=== PATIENT | female | born 1965 ===

== ENCOUNTER 2022-06-28 09:21 | Outpatient (CLI) | payer OTHER, SELFPAY ==
--- NOTE | 2022-07-14 17:45 | WPDHOMESLEEP ---
Sleep Study - Home Unattended Date of Study: 06/28/22 Ordering Provider: Pako Chi APRN Interpreting Provider: Yashira Santizo, DO Home Sleep Study Type: Watch PAT Height: 1.73 m Weight: 90.265 kg Body Mass Index: 30.2 Neck Circumference (inches): 14 [place]: 3 Reason for Sleep Study Daytime hypersomnia Sleep History The patient is a 57-year-old female with anxiety and depression that had a sleep study ordered by the pulmonary group for evaluation of sleep apnea. The patient rarely awakens from sleep short of breath. She occasionally awakens at night with heartburn, belching or cough. She constantly snores and is frequently loud enough that others complain. She occasionally has trouble sleeping when she has a cold. She rarely wakes up gasping for air throughout the night. She denies having breathing problems at night observed by herself or others. She rarely sweats excessively at night. She denies having heart palpitations or irregular heartbeats during the night. She denies falling asleep during the day and while driving. She denies sleep paralysis, cataplexy and hypnagogic / hypnopompic hallucinations. She denies having trouble at school or work due to sleepiness. She denies feeling afraid of going to sleep. She rarely has nightmares. She occasionally remembers her dreams. She frequently has thoughts racing through her mind. She occasionally feels sad or depressed. She frequently has anxiety. She rarely has muscular tension. She occasionally notices parts of her body jerk. She rarely kicks during the night. She denies having crawling and aching feelings in her legs and denies having leg pain during the night. She denies grinding her teeth during sleep but rarely awakens with morning jaw pain. She denies being bothered by pain during the day and denies being awakened by pain during the night. She occasionally wakes up feeling stiff in the morning. She rarely wakes up with sore or achy muscles. She frequently wakes up with pain in the neck, spine or other joints. She goes to bed at 10:30 p.m. on weekdays and 11:00 p.m. on the weekends. She can fall asleep within 10 minutes. She wakes up twice throughout the night for unknown reasons but is able to fall back asleep within 5 minutes. She wakes up at 6:00 a.m. on weekdays and 7:30 a.m. on weekends. She typically gets 7 hours of sleep per night. She will stay in bed for 20 minutes after waking up in the morning. She currently lives with her child. She does not consume any caffeinated beverages within 2 hours of bedtime. She does not engage in physical exercise before bedtime. She will read and watch television before falling asleep. She will take naps in the afternoon or the evening but they are not refreshing. She drinks 2 caffeinated beverages per day. She quit smoking cigarettes 25 years ago. She denies alcohol and recreational drug use. [facility], LAT[facility] Past Medical History Medical History delivery delivered Fatigue Generalized anxiety disorder Mild major depression Surgical History Surgical History History of bilateral ligation of fallopian tubes Family History Family History Mother Hypertension Anxiety Depression Daughter Schizoaffective disorder Substance abuse Bipolar disorder Schizophrenia Unknown Breast cancer History of suicide attempt Bipolar disorder Hypothyroidism Social History Social History Smoking status: Former smoker Medications Home Medications Medication Instructions Recorded Confirmed Type duloxetine 60 mg capsule,delayed 60 mg PO DAILY 04/04/22 04/26/22 History release sprinkle Sleep Procedure The sleep study was completed using [employer] a [facility] adequ
[2022-07-14 17:52] VITALS: BMI 30.2
== END 2022-06-29 13:27 | disposition home or self-care (01) ==
LOC: ANHCSM 09:35
PROVIDERS: PCP Family Medicine; Visit Provider Nurse Practitioner Family
DX: R06.83 Snoring (principal); G47.30 Sleep apnea, unspecified; G47.33 Obstructive sleep apnea (adult) (pediatric)
CPT/HCPCS: 95800

== ENCOUNTER 2022-08-02 08:49 | Outpatient (CLI) | payer OTHER, SELFPAY ==
--- NOTE | 2022-08-22 17:33 | WPDSLEEPSTUD ---
Sleep Study Date of Study: 08/02/22 Ordering Provider: Pako Chi APRN Interpreting Physician: Yashira Santizo DO Sleep Study Type: CPAP Titration Height: 1.73 m Weight: 88.451 kg Body Mass Index: 29.6 Neck Circumference (inches): 14 [place]: 8 Reason for Sleep Study The patient had a watchPAT home sleep test on 06/28/2022 that showed a residual AHI of 23.6 with desaturation down to 73%. Her REM AHI was 53.6. It was recommended that she have a PAP Titration study. Sleep History The patient is a 57-year-old female with anxiety and depression that had a sleep study ordered by the pulmonary group for evaluation of sleep apnea.? The patient rarely awakens from sleep short of breath.? She occasionally awakens at night with heartburn, belching or cough.? She constantly snores and is frequently loud enough that others complain.? She occasionally has trouble sleeping when she has a cold.? She rarely wakes up gasping for air throughout the night.? She denies having breathing problems at night observed by herself or others.? She rarely sweats excessively at night.? She denies having heart palpitations or irregular heartbeats during the night.? She denies falling asleep during the day and while driving.? She denies sleep paralysis, cataplexy and hypnagogic / hypnopompic hallucinations.? She denies having trouble at school or work due to sleepiness.? She denies feeling afraid of going to sleep.? She rarely has nightmares.? She occasionally remembers her dreams.? She frequently has thoughts racing through her mind.? She occasionally feels sad or depressed.? She frequently has anxiety.? She rarely has muscular tension.? She occasionally notices parts of her body jerk.? She rarely kicks during the night.? She denies having crawling and aching feelings in her legs and denies having leg pain during the night.? She denies grinding her teeth during sleep but rarely awakens with morning jaw pain.? She denies being bothered by pain during the day and denies being awakened by pain during the night.? She occasionally wakes up feeling stiff in the morning.? She rarely wakes up with sore or achy muscles.? She frequently wakes up with pain in the neck, spine or other joints.? She goes to bed at 10:30 p.m. on weekdays and 11:00 p.m. on the weekends.? She can fall asleep within 10 minutes.? She wakes up twice throughout the night for unknown reasons but is able to fall back asleep within 5 minutes.? She wakes up at 6:00 a.m. on weekdays and 7:30 a.m. on weekends.? She typically gets 7 hours of sleep per night.? She will stay in bed for 20 minutes after waking up in the morning.? She currently lives with her child.? She does not consume any caffeinated beverages within 2 hours of bedtime.? She does not engage in physical exercise before bedtime.? She will read and watch television before falling asleep.? She will take naps in the afternoon or the evening but they are not refreshing.? She drinks 2 caffeinated beverages per day.? She quit smoking cigarettes 25 years ago.? She denies alcohol and recreational drug use. [facility] Past Medical History Medical History delivery delivered Fatigue Generalized anxiety disorder Mild major depression Surgical History Surgical History History of bilateral ligation of fallopian tubes Family History Family History Mother Hypertension Anxiety Depression Daughter Schizoaffective disorder Substance abuse Bipolar disorder Schizophrenia Unknown Breast cancer History of suicide attempt Bipolar disorder Hypothyroidism Social History Social History Smoking status: Former smoker Medications Home Medications Medication Instructions Recorded Confirmed Type duloxetine 60 mg capsul
[2022-08-22 17:43] VITALS: BMI 29.6
== END 2022-08-03 06:43 | disposition home or self-care (01) ==
LOC: ANHCSM 08:49
PROVIDERS: PCP Family Medicine; Visit Provider Nurse Practitioner Family
DX: G47.33 Obstructive sleep apnea (adult) (pediatric) (principal)
CPT/HCPCS: 95811